=== PATIENT | male | born 1950 | race Caucasian/White ===

== ENCOUNTER 2016-12-19 09:41 | Emergency (ER) | payer MEDICAID ==
[2016-12-19] MEDS ORDERED: predniSONE 20 MG TAB PO ONE (10:01)
[2016-12-19] MEDS ORDERED: ALBUTEROL 3 ML DEYVIAL IH ONE (10:01)
--- NOTE | 2016-12-19 10:04 | EDPHY ---
H & P Stated Complaint: Shortness of breath Time Seen by Provider: 12/19/16 09:47 HPI/ROS: CHIEF COMPLAINT: Dyspnea, wheezing HISTORY OF PRESENT ILLNESS: The patient presents the ED with a 1 day history of dyspnea and wheezing. The patient does have a history of asthma/COPD. He does use albuterol as needed. He is on a daily inhaled steroid. He has had no recent hospitalizations. He presents to the ED after he developed dyspnea and wheezing at work today. The patient denies any asymmetric calf pain or swelling. He denies pleuritic chest pain. He denies any history of exertional chest pain increasing over the past week. He has been taking his medications as prescribed. He denies additional acute complaints. REVIEW OF SYSTEMS: A comprehensive 10 point review of systems is otherwise negative aside from elements mentioned in the history of present illness. Source: Patient Exam Limitations: No limitations - Personal History Current Tetanus/Diphtheria Vaccine: Yes Current Tetanus Diphtheria and Acellular Pertussis (TDAP): Yes Tetanus Vaccine Date: last 10 years - Medical/Surgical History Hx Asthma: Yes Hx Chronic Respiratory Disease: Yes Hx Diabetes: No Hx Cardiac Disease: No Hx Renal Disease: No Hx Cirrhosis: No Hx Alcoholism: No Hx HIV/AIDS: No Hx Splenectomy or Spleen Trauma: No Other PMH: COPD, asthma, uticaria - Social History Smoking Status: Former smoker - Physical Exam Exam: General Appearance: Alert, no distress Eyes: Pupils equal and round no pallor or injection ENT, Mouth: Mucous membranes moist Respiratory: Diffuse expiratory wheezing, mild tachypnea Cardiovascular: Regular rate and rhythm Gastrointestinal: Abdomen is soft and nontender, no masses, bowel sounds normal Neurological: A&O, normal motor function, normal sensory exam, normal cranial nerves Skin: Warm and dry, no rashes Musculoskeletal: Neck is supple nontender Extremities: symmetrical, full range of motion Constitutional: Initial Vital Signs Heart Rate 92 12/19/16 09:47 Respiratory Rate 18 12/19/16 09:47 Blood Pressure 132/89 H 12/19/16 09:47 O2 Sat (%) 93 12/19/16 09:47 O2 Delivery Mode Room Air Allergies/Adverse Reactions: No Known Allergies Allergy (Unverified 12/19/16 09:53) Home Medications: Medication Instructions Recorded Albuterol 12/19/16 Steroid Inhaler 12/19/16 predniSONE [prednisone 20mg (RX)] 3 tab PO DAILY #15 tab 12/19/16 Medical Decision Making - Diagnostics Imaging Results: Imaging Impressions Chest X-Ray 12/19/16 10:01 Impression: Bronchitis, otherwise negative chest.. ED Course/Re-evaluation: The patient presents to the ED with dyspnea and wheezing. The patient received 60 mg of prednisone. He received an additional 2 albuterol nebulized treatments. The patient was reexamined by myself at 12:00 p.m.. He is feeling much better. His wheezing has resolved. The patient would like to be discharged from the emergency department. He will be given a 5 day course of oral prednisone. He is given albuterol MDI to be discharged with. The patient understands to return to the ED immediately for any recurrent chest pain, difficulty breathing or other concerns. Differential Diagnosis: Differential diagnosis considered includes asthma, bronchitis, pneumonia - Data Points Medications Given: Discontinued Medications Albuterol (Proventil Neb) 3 ml IH EDNOW ONE Stop: 12/19/16 10:02 Last Admin: 12/19/16 10:07 Dose: 3 ml Prednisone (Prednisone) 60 mg PO EDNOW ONE Stop: 12/19/16 10:02 Last Admin: 12/19/16 10:07 Dose: 60 mg Departure - Departure Disposition: Home, Routine, Self-Care Clinical Impression: Exacerbation of asthma Condition: Good Instructions: Bronchospasm (ED) Additional Instructions: 1. Take prednisone as directed for next 5 days. 2. Use albuterol as needed for shortness of breath. 3. Please follow up with your primary care provider for a recheck next week. 4. Please return to the ED immediately for any worsening symptoms, chest pain or difficulty breathing.
[2016-12-19] MEDS ORDERED: ALBUTEROL 3 ML DEYVIAL ONE (11:17)
--- NOTE | 2016-12-19 11:48 | CPEKG ---
Heart Rate: 93 RR Interval: 645 P-R Interval: 180 QRSD Interval: 104 QT Interval: 356 QTC Interval: 443 P [place]: 37 QRS [place]: 14 T Wave [place]: 24 EKG Severity - BORDERLINE ECG - EKG Impression: SINUS RHYTHM EKG Impression: VENTRICULAR PREMATURE COMPLEX Electronically Signed By: Luis Carlos Haddad 19-Dec-2016 14:51:43
[2016-12-19 12:13] VITALS: BP 128/77; PULSE 85; RESP 16; TEMP 98.1; O2SAT 89
[2016-12-19] MEDS ORDERED: ALBUTEROL INH PREPACK MDI TAKEHOME ONE (12:15)
== END 2016-12-19 12:40 | disposition home or self-care (01) ==
DX: J45.901 Unspecified asthma with (acute) exacerbation (principal); Z87.891 Personal history of nicotine dependence